=== PATIENT | female | born 1980 | race African-American/Black ===

== ENCOUNTER 2016-12-28 16:00 | Inpatient (IN) | payer OTHER ==
[~2016-12-28] VITALS: Ht 165.1 cm; Wt 120.7 kg
--- NOTE | ~2016-12-28 | PA ---
Unit #: [id number] #: [id number] Patient: KAITJULY [id number] [facility] [address] [place] [address] [id number] I MR#: [id number] NAME: MARCIE CARBALLO ROOM: P258 Age: 36 Sex: F Admission Date: 12/28/2016 : 1980 Date of Assessment: 12/29/2016 Attending Physician: Martinez Massey M.D. Admitting Physician: Martinez Massey M.D. Primary Care Physician: Generic Doctor Not In System PSYCHIATRIC ASSESSMENT IDENTIFYING INFORMATION The patient is a 36-year-old single female admitted with increasing suicidal ideation and abuse of opiates and cocaine. CHIEF COMPLAINT None given. INFORMANT The patient and chart. REALIABILITY Good HISTORY OF PRESENT ILLNESS The patient is a 36-year-old female who was admitted to the [address] [place] [address] unit with a history of increasing depression and suicidal ideation and abuse of cocaine and opiates. The patient reports that she was considering suicide on Friday night but her friend found her and brought to this facility. The patient reports that she had made preparations for her suicide including choosing her outfit, pills, etc. The patient currently reports ongoing sadness and suicidal ideation related mainly to her substance abuse and life situation. The patient lives with her girlfriend and their blended family. The patient also reports difficulty at her work place. The patient reports poor sleep. She denies any lost appetite. PAST PSYCHIATRIC HISTORY The patient was last hospitalized at this facility in 2012 under the care of Dr. Vásquez. She was at that time prescribed Celexa and Trazodone. PAST MEDICAL HISTORY Significant for a history of obesity. MEDICATIONS Amoxicillin ALLERGIES None reported. FAMILY HISTORY The patient reports an extensive history of present illness. SOCIAL HISTORY Unit #: [id number] #: [id number] Patient: KAITJULY The patient lives with her girlfriend and their three children from previous relationships. She reports substance use as noted previously. 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. She is a high school graduate. She is a smoker. MENTAL STATUS EXAMINATION At this time reveals the patient to be an obese female, appearing her stated age. She is in no apparent physical distress at the time of examination. She is awake, alert, and oriented in all spheres. Her mood is euthymic. Her affect congruent. Speech is generally relevant and coherent. There are no gross deficits in memory or cognition noted. Intelligence is judged to be in the average range based on fund of knowledge. The patient is cooperative throughout the interview. She is currently endorsing positive suicidal ideation. She denies homicidal ideation. She denies any psychotic symptoms. Her judgment and insight appear to be intact. ASSETS AND LIABILITIES ASSETS: Motivation for changes. LIABILITIES: Ongoing substance use. ADMITTING DIAGNOSES Dysthymic disorder, cocaine use disorder, opioid use disorder, obesity, environmental allergies. PSYCHIATRIC PLAN/TREATMENT GOALS The patient remains hospitalized for safety and stabilization. She has a history of previous response to Citalopram. I will start her on Lexapro 10 mg daily to address depressive symptoms and we will add p.r.n. vistaril and trazodone. Consideration may be given to transfer the patient to chemical dependence treatment unit. ESTIMATED LENGTH OF STAY Three to five days. Dictated by... Martinez Massey M.D. RANDY/ho TD: 12/29/2016 22:36 JOB #: [id number] PSYCHIATRIC ASSESSMENT Page 1 of 1 X Martinez Massey MD X PSYCHIATRIC ASSESSMENT
--- NOTE | ~2016-12-28 | HP ---
Unit #: [id number] #: [id number] Patient: KAIT [id number] [facility] [address] [place] [address] [id number] I MR#: [id number] NAME: ROSENDA CARBALLO ROOM: P258 Age: 36 Sex: F Admission Date: 12/28/2016 : 1980 Attending Physician: Martinez Massey M.D. Admitting Physician: Martinez Massey M.D. Primary Care Physician: Generic Doctor Not In System HISTORY AND PHYSICAL History and physical completed on 12/29/2016. HISTORY OF PRESENT ILLNESS Rosenda is a 36-year-old female, admitted on 12/28/2016, to [address] [place] [address] for suicidal ideation with a plan to overdose. She also had a history of polysubstance abuse. PAST MEDICAL HISTORY Morbid obesity. PAST SURGICAL HISTORY Lap band. SOCIAL HISTORY Occasional tobacco use, occasional binge alcohol use, and recent use of crack cocaine. She is currently single and living with her girlfriend. FAMILY HISTORY Noncontributory. REVIEW OF SYSTEMS CONSTITUTIONAL: No fever or chills. HEENT: Denies any sore throat, ear pain or runny nose. CARDIOVASCULAR: Denies chest pain, irregular heart rhythm or palpitations. CHEST: Denies shortness of breath or cough. No hemoptysis. GASTROINTESTINAL: Denies nausea, vomiting, diarrhea or chronic constipation. ENDOCRINE: Denies history of increased thirst or urination. No recent significant weight loss or gain. GENITOURINARY: Denies dysuria, frequency, or hematuria. SKIN: Denies any rashes. HEMATOLOGIC: Denies history of increased bleeding or bruising. MUSCULOSKELETAL: Denies any hot, swollen joints. No generalized muscle pain. NEUROLOGIC: Denies problems with vision or speech. No frequent, severe headaches. No numbness, tingling or weakness in any extremities. Denies loss of bladder or bowel control. CURRENT MEDICATIONS None. ALLERGIES Tramadol. Unit #: [id number] #: [id number] Patient: KAITROSENDA PHYSICAL EXAMINATION GENERAL: Alert, oriented, and in no acute distress. VITAL SIGNS: Blood pressure 136/82, heart rate 78, respirations 16. HEIGHT: 5 feet 5 inches. WEIGHT: 266 pounds. SKIN: Warm and dry without rash or lesion. HEENT: Normocephalic. TMs not viewed. Oral and nasal passages clear. Conjunctivae clear. PERRLA. EOMs intact. NECK: Supple without lymphadenopathy or thyromegaly. HEART: Regular rate and rhythm without murmur. LUNGS: Clear. ABDOMEN: Soft, nontender. : Not done. EXTREMITIES: No evidence of cyanosis, clubbing or edema. Moves all without focal deficit. NEUROLOGICAL: Grossly within normal limits. Cranial Nerves: II: Visual goyal are intact. III, IV AND : Extraocular movements are intact. Pupils are equal, round and reactive to light. V: Facial sensation is grossly normal. VII: Facial movements and expression are normal. VIII: Auditory acuity grossly intact. IX, X: Uvula is midline. Phonation is normal. XI: Patient shrugs shoulders and turns head normally. XII: Tongue protrudes in the midline. Sensory and Motor Function: Sensory and motor sensation is grossly normal. Motor: moves all extremities well. Coordination: Gait is normal. Deep Tendon Reflexes: Intact. IMPRESSION 1. Psychiatric admission. 2. Morbid obesity. RECOMMENDATIONS Psychiatric, per psychiatrist. MEDICAL No contraindications to participating in facility's activities. MEDICAL PROGNOSIS Good. MEDICAL CONDITION Stable. Dictated by... Tristen Dutta TD: 12/30/2016 11:36 JOB #: [id number] Unit #: [id number] #: [id number] Patient: HISTORY AND PHYSICAL Page 1 of 1 X DONOVAN RICHEY APRN HISTORY AND PHYSICAL
--- NOTE | ~2016-12-28 | CO ---
Unit #: [id number] #: [id number] Patient: KAITROSENDA [id number] [place] [address] [id number] MR#: [id number] NAME: ROSENDA CARBALLO ROOM: P258 Age: 36 Sex: F Admission Date: 12/28/2016 : 1980 Attending Physician: Martinez Massey M.D. Primary Care Physician: Generic Doctor Not In System Consultation Date: 12/29/2016 CONSULTATION REPORT HISTORY OF PRESENT ILLNESS Rosenda had an elevated white blood cell count of 11.0. She also had trace ketones in her urine. She denies feeling unwell. No burning with urination. No urinary frequency, and she has no complaints. PHYSICAL EXAMINATION CARDIAC: Regular rate and rhythm. No murmurs, gallops, or rubs. RESPIRATORY: Clear to auscultation bilaterally. ASSESSMENT AND PLAN Elevated white blood cell count. We will repeat a CBC in the morning. If abnormal, may need to consider further evaluation. Dictated by... Tristen Dutta/kim TD: 12/31/2016 01:58 JOB #: [id number] CONSULTATION REPORT Page 1 of 1 X DONOVAN RICHEY APRN X CONSULTATION REPORT
--- NOTE | ~2016-12-28 | DS ---
Unit #: [id number] #: [id number] Patient: KAIT [id number] [facility] [address] [place] [address] [id number] I MR#: [id number] NAME: KAIT JULY ROOM: P258 Age: 36 Sex: F Admission Date: 12/28/2016 : 1980 Discharge Date: 12/30/2016 Attending Physician: Martinez Massey M.D. Primary Care Physician: Generic Doctor Not In System DISCHARGE SUMMARY REASON FOR ADMISSION The patient is a 36-year-old female, admitted to the [facility] secondary to history of recent increasing depression. HOSPITAL COURSE The patient was admitted to the [facility] and placed on suicide precautions. A trial of trazodone 50 mg at h.s. was initiated to address the patient's complaints of poor sleep. Additionally, the patient was begun on Lexapro 10 mg daily for depression and Vistaril 50 mg q.6 hours p.r.n. anxiety. She tolerated these medications well and reported reduction in suicidal ideation and requesting discharge on 12/30/2016. She was agreeable with plan for followup through the auspices of [facility] mental health resources and discharge was ordered. FINAL DIAGNOSIS Major depressive disorder, recurrent, moderate. DISPOSITION ON DISCHARGE The patient is discharged on the following medications; Lexapro 10 mg daily for depression, trazodone 50 mg at h.s. p.r.n. insomnia, Vistaril 50 mg q.6 hours p.r.n. anxiety. DISCHARGE INSTRUCTIONS No dietary or physical restrictions were placed on the patient at the time of discharge. FOLLOWUP Followup will take place through the auspices of [facility] mental health resources in the [facility]. PROGNOSIS The patient's prognosis is considered good. Dictated by... Martinez Massey M.D. CB/kim TD: 12/31/2016 01:50 JOB #: [id number] Unit #: [id number] #: [id number] Patient: KAIT DISCHARGE SUMMARY Page 1 of 1 X Martinez Massey MD X DISCHARGE SUMMARY
[2016-12-30 09:36] LABS: BASOPHIL% 0.3 % (0-2.5); EOSINOPHIL# 0.1 X10e3 (0-0.7); EOSINOPHIL% 0.9 % (0.0-7.0); HEMATOCRIT 36.6 % (35.0-45.0); HEMOGLOBIN 12.2 gm/dL (12.0-16.0); LYMPHOCYTE# 2.1 X10e3 (1.0-3.5); LYMPHOCYTE% 21.9 % (17.0-45.0); MEAN CELL VOLUME 88.1 FL (83-96); MEAN CORPUSCULAR HEMOGLOBIN 29.4 PG (28-34); MEAN CORPUSCULAR HGB CONC 33.3 g/dL (30-36); MEAN PLATELET VOLUME 9.2 FL (6.5-11.5); MONOCYTE# 0.5 X10e3 (0-1.0); MONOCYTE% 5.1 % (3.0-12.0); NEUTROPHIL# 7.1 X10e3 (1.5-7.1); NEUTROPHIL% 71.8 % (40-75); PLATELET COUNT 263 X10e3 (140-420); RED BLOOD COUNT 4.16 X10e (3.90-5.30); RED CELL DISTRIBUTION WIDTH 14.7 % (11.0-15.5); WHITE BLOOD COUNT 9.8 X10e3 (4.0-10.5)
[2016-12-30 09:41] LABS: DIFF IND NO
== END 2016-12-30 17:00 | disposition home or self-care (01) | DRG 885 ==
LOC: P2L 22:20
PROVIDERS: Nurse Practitioner Primary Care
DX: F33.1 Major depressive disorder, recurrent, moderate (principal); R45.851 Suicidal ideations; E66.01 Morbid (severe) obesity due to excess calories; Z88.1 Allergy status to other antibiotic agents; F14.10 Cocaine abuse, uncomplicated; F11.10 Opioid abuse, uncomplicated
CPT/HCPCS: 85025